=== PATIENT | male | born 1970 | race Caucasian/White ===

== ENCOUNTER 2020-03-06 02:16 | Observation (INO) ==
[2020-03-06] MEDS ORDERED: Naloxone 0.4 MG/ML INJ IVP PRN (05:03)
[2020-03-06] MEDS ORDERED: Dextrose Gel 15 GM/37.5 ML TUBE PO PRN ×2 (05:27)
[2020-03-06] MEDS ORDERED: D5% in Water 1,000 ML IVC PRN (05:27)
[2020-03-06] MEDS ORDERED: *HR* Dextrose 50 % in Water (Vial) 50 ML VIAL IVP PRN (05:27)
[2020-03-06] MEDS: *HR* Heparin 5,000 UNIT/ML VIAL SQ SCH ×3 (06:11→20:49)
[2020-03-06] MEDS: Insulin LISPRO 300 UNITS/3 ML VIAL SUBQ SCH ×5 (08:38→16:22)
[2020-03-06 08:45] LABS: Basophils % 0.2 %; Hematocrit 43.9 % (37.5-50.1); Hemoglobin 15.1 g/dL (12.9-16.9); Immature Granulocytes % 0.4 % (0-4); Lymphocytes % 6.3 %; Mean Corpuscular HGB Conc 34.4 g/dL (31.6-35.5); Mean Corpuscular Hemoglobin 29.4 pg (28.0-33.3); Mean Corpuscular Volume 85.6 fL (83.0-100.0); Mean Platelet Volume 10.3 fL (9.4-12.4); Monocytes # 0.3 K/mcL (0.0-1.3); Monocytes % 1.9 %; Neutrophils # 13.8 K/mcL (1.6-8.9); Platelet Count 253 K/mcL (140-400); Red Blood Count 5.13 M/mcL (4.19-5.50); Red Cell Distribution Width 11.9 % (11.5-14.5); Segmented Neutrophils % 91.2 %; White Blood Count 15.1 K/mcL (4.3-11.1)
[2020-03-06 09:05] LABS: BUN/Creatinine Ratio 24 (6-26); Blood Urea Nitrogen 20 mg/dL (6-20); Calcium 8.6 mg/dL (8.6-10.3); Carbon Dioxide 26 mEq/L (23-29); Chloride 97 mEq/L (98-107); Glucose 504 mg/dL (70-105); Magnesium 1.6 mg/dL (1.6-2.6); Osmolality,Calculated 295 (280-300); Phosphorous 4.4 mg/dL (2.7-4.5); Potassium 4.3 mEq/L (3.5-5.1); Sodium 130 mEq/L (136-145); eGFR For African Americans > 60 (> 60); eGFR For Non-African Americans > 60 (> 60)
[2020-03-06] MEDS ORDERED: Insulin Human Regular 20 UNIT in 0.9 % Sodium Chloride 10 ML IV ONE (09:06)
[2020-03-06] MEDS: valACYclovir 500 MG TABLET PO SCH ×3 (09:48→20:49)
[2020-03-06] MEDS: Artificial Tears SOLN 15 ML BOTTLE LEFT EYE SCH ×4 (09:49→20:49)
[2020-03-06 10:13] LABS: Estimated Average Glucose 318 mg/dl; Hemoglobin A1C 12.7 %
[2020-03-06] MEDS ORDERED: predniSONE 20 MG TABLET PO SCH (16:00)
[2020-03-06] MEDS ORDERED: Insulin DETEMIR 100 UNIT/ML X5UNITS SUBQ SCH (21:00)
[2020-03-06] MEDS ORDERED: Insulin LISPRO 300 UNITS/3 ML VIAL SUBQ SCH (21:00)
[2020-03-07] MEDS: *HR* Heparin 5,000 UNIT/ML VIAL SQ SCH ×2 (06:42→14:17)
[2020-03-07 08:18] LABS: BUN/Creatinine Ratio 31 (6-26); Blood Urea Nitrogen 22 mg/dL (6-20); Calcium 9.1 mg/dL (8.6-10.3); Carbon Dioxide 24 mEq/L (23-29); Chloride 101 mEq/L (98-107); Glucose 281 mg/dL (70-105); Osmolality,Calculated 289 (280-300); Potassium 4.2 mEq/L (3.5-5.1); Sodium 133 mEq/L (136-145); eGFR For African Americans > 60 (> 60); eGFR For Non-African Americans > 60 (> 60)
[2020-03-07 08:19] LABS: Thyroid Stimulating Hormone 0.676 mcIU/mL (0.340-5.600)
[2020-03-07] MEDS: Artificial Tears SOLN 15 ML BOTTLE LEFT EYE SCH ×2 (08:20→14:17)
[2020-03-07] MEDS: valACYclovir 500 MG TABLET PO SCH (08:21)
[2020-03-07] MEDS: Insulin LISPRO 300 UNITS/3 ML VIAL SUBQ SCH ×4 (08:21→11:52)
[2020-03-07 11:57] VITALS: BP 154/94
== END 2020-03-07 16:25 | disposition home or self-care (01) ==
LOC: CDU
PROVIDERS: ADMIT Student in an Organized Health Care Education/Training Program; ATTEND Student in an Organized Health Care Education/Training Program

== ENCOUNTER 2020-10-14 04:19 | Observation (INO) ==
[2020-10-14] MEDS ORDERED: Isovue-370 500 ML BOTTLE IVP ONE (07:50)
[2020-10-14] MEDS ORDERED: Ketorolac 15 MG/ML VIAL IVP ONE (07:51)
[2020-10-14 08:20] LABS: Basophils # 0.1 K/mcL (0.0-0.2); Basophils % 0.4 %; Eosinophils # 0.1 K/mcL (0.0-0.6); Eosinophils % 0.8 %; Hematocrit 41.8 % (37.5-50.1); Hemoglobin 14.2 g/dL (12.9-16.9); Immature Granulocytes % 0.3 % (0-4); Lymphocytes # 1.8 K/mcL (0.6-4.6); Lymphocytes % 11.5 %; Mean Corpuscular Hemoglobin 30.5 pg (28.0-33.3); Mean Corpuscular Volume 89.9 fL (83.0-100.0); Mean Platelet Volume 10.2 fL (9.4-12.4); Monocytes % 6.5 %; Neutrophils # 12.4 K/mcL (1.6-8.9); Platelet Count 234 K/mcL (140-400); Red Blood Count 4.65 M/mcL (4.19-5.50); Red Cell Distribution Width 12.2 % (11.5-14.5); Segmented Neutrophils % 80.5 %; White Blood Count 15.4 K/mcL (4.3-11.1)
[2020-10-14 08:39] LABS: Alanine Aminotransferase 13 Units/L (7-52); Albumin/Globulin Ratio 1.2 (1.1-2.2); Alkaline Phosphatase 73 Units/L (34-104); Aspartate Amino Transferase 13 Units/L (13-39); BUN/Creatinine Ratio 23 (6-26); Bilirubin,Total 0.9 mg/dL (0.3-1.0); Blood Urea Nitrogen 19 mg/dL (6-20); Calcium 8.8 mg/dL (8.6-10.3); Carbon Dioxide 29 mEq/L (23-29); Chloride 104 mEq/L (98-107); Globulin 2.5 g/dL (2.4-3.5); Glucose 181 mg/dL (70-105); Osmolality,Calculated 293 (280-300); Potassium 3.9 mEq/L (3.5-5.1); Sodium 138 mEq/L (136-145); Total Protein 5.5 g/dL (6.4-8.9); eGFR For African Americans > 60 (> 60); eGFR For Non-African Americans > 60 (> 60)
[2020-10-14] MEDS ORDERED: cefTRIAXone 1,000 MG in 0.9 % Sodium Chloride Mini Bag 100 ML IVPB ONE (09:34)
[2020-10-14] MEDS ORDERED: MetroNIDAZOLE 500 MG/100 ML 500 MG/100 ML BAG IVPB ONE (09:34)
[2020-10-14] MEDS ORDERED: Ondansetron 4 MG/2 ML VIAL ONE ×2 (10:14→13:03)
[2020-10-14] MEDS ORDERED: *HR* Rocuronium Bromide 50 MG/5 ML VIAL ONE ×2 (10:14→12:55)
[2020-10-14] MEDS ORDERED: *HR* FentaNYL (PF) 100 MCG/2 ML VIAL ONE ×3 (10:14→13:38)
[2020-10-14] MEDS ORDERED: *HR* Midazolam HCl 2 MG/2 ML VIAL ONE ×2 (10:14→13:38)
[2020-10-14] MEDS ORDERED: Lidocaine -MPF 2% 2 ML VIAL ONE ×4 (10:14→13:02)
[2020-10-14] MEDS ORDERED: *HR* Propofol 200 MG/20 ML VIAL IVP ONE ×2 (10:14→13:03)
[2020-10-14] MEDS ORDERED: Lidocaine -MPF 4% 5 ML AMPUL ONE ×2 (10:14→13:02)
[2020-10-14] MEDS ORDERED: *HR* HYDROmorphone PF 0.5 MG/0.5 ML SYRINGE IVP PRN (10:43)
[2020-10-14] MEDS ORDERED: Ondansetron 4 MG/2 ML VIAL IVP PRN ×2 (10:43→16:41)
[2020-10-14] MEDS ORDERED: Ringers Solution, Lactated 1,000 ML IVC SCH (10:45)
[2020-10-14 10:58] LABS: Prothrombin Time 11.4 Seconds (9.4-12.1)
[2020-10-14 11:01] LABS: Activated Partial Thrombo Time 34.6 Seconds (26.0-36.0)
[2020-10-14] MEDS ORDERED: 0.9 % Sodium Chloride 1,000 ML IVC SCH (11:45)
[2020-10-14] MEDS ORDERED: *HR* HYDROMORPHONE 2 MG/ML VIAL ONE (15:08)
[2020-10-14] MEDS ORDERED: *HR* OxyCODONE/APAP 5/325 TABLET PO PRN (16:41)
[2020-10-14] MEDS ORDERED: INSULIN ISOPHANE SQ SCH (17:00)
[2020-10-14] MEDS: Ketorolac 15 MG/ML VIAL IVP SCH (17:51)
[2020-10-14] MEDS: *HR* Metformin 500 MG TABLET PO SCH (17:57)
[2020-10-14] MEDS: 0.9 % Sodium Chloride 1,000 ML IVC SCH (18:02)
[2020-10-14] MEDS ORDERED: *HR* LORazepam 2 MG/ML VIAL IVP PRN (20:24)
[2020-10-14] MEDS ORDERED: D5% in Water 1,000 ML IVC PRN (20:29)
[2020-10-14] MEDS ORDERED: Dextrose Gel 15 GM/37.5 ML TUBE PO PRN ×2 (20:29)
[2020-10-14] MEDS ORDERED: *HR* Dextrose 50 % in Water (Vial) 50 ML VIAL IVP PRN (20:29)
[2020-10-14] MEDS ORDERED: Insulin LISPRO 300 UNITS/3 ML VIAL SUBQ SCH (21:00)
[2020-10-14] MEDS ORDERED: valACYclovir 500 MG TABLET PO SCH ×2 (21:00)
[2020-10-15] MEDS: 0.9 % Sodium Chloride 1,000 ML IVC SCH ×2 (00:08→09:30)
[2020-10-15] MEDS: Ketorolac 15 MG/ML VIAL IVP SCH ×3 (05:55→12:35)
[2020-10-15] MEDS ORDERED: Insulin NPH 100 UNIT/ML (x5UNIT) SUBQ SCH (08:00)
[2020-10-15] MEDS: Insulin LISPRO 300 UNITS/3 ML VIAL SUBQ SCH ×2 (08:58→12:36)
[2020-10-15] MEDS ORDERED: predniSONE 20 MG TABLET PO SCH (09:00)
[2020-10-15] MEDS: *HR* Metformin 500 MG TABLET PO SCH (09:20)
[2020-10-15 10:57] VITALS: BP 133/78; PULSE 88; TEMP 98.1; O2SAT 95
== END 2020-10-15 14:25 | disposition home or self-care (01) ==
LOC: EMEROOARM 04:19 → 3BNU 04:19
PROVIDERS: ADMIT Surgery; ATTEND Surgery